=== PATIENT | male | born 1980 | race Caucasian/White ===

== ENCOUNTER 2016-12-02 13:12 | Emergency (ER) | payer OTHER ==
[~2016-12-02] VITALS: Ht 180.3 cm; Wt 133.5 kg
[2016-12-02] MEDS ORDERED: FLEXERIL10 MG PO (17:39)
[2016-12-02 19:13] VITALS: BP 145/87
== END 2016-12-02 19:23 | disposition home or self-care (01) ==
LOC: EME 13:12
DX: S39.012A Strain of muscle, fascia and tendon of lower back, initial encounter (principal); W17.89XA Other fall from one level to another, initial encounter; Y99.0 Civilian activity done for income or pay; E11.9 Type 2 diabetes mellitus without complications; I10 Essential (primary) hypertension; F17.200 Nicotine dependence, unspecified, uncomplicated
CPT/HCPCS: 72131; 99281; 99284